=== PATIENT | female | born 1960 | race Asian ===

== ENCOUNTER 2017-05-23 22:04 | Emergency (ER) | payer MEDICAID ==
[~2017-05-23] VITALS: Ht 157.5 cm; Wt 50.3 kg
[2017-05-23 22:12] VITALS: BP 163/110
[2017-05-24] MEDS ORDERED: IBUPROFEN 600 MG TAB PO ONE (00:15)
[2017-05-24] MEDS ORDERED: BACLOFEN 10 MG TAB PO ONE (00:15)
[2017-05-24] MEDS ORDERED: ONDANSETRON ODT 4 MG TAB PO ONE (00:15)
== END 2017-05-24 00:24 | disposition home or self-care (01) ==
LOC: ER 22:09
DX: S16.1XXA Strain of muscle, fascia and tendon at neck level, initial encounter (principal); R51 Headache; V43.52XA Car driver injured in collision with other type car in traffic accident, initial encounter; Y93.89 Activity, other specified; Y99.8 Other external cause status; Y92.89 Other specified places as the place of occurrence of the external cause
CPT/HCPCS: 70450; 72125; 99284; Q0162